=== PATIENT | female | born 2000 | race Caucasian/White ===

== ENCOUNTER 2024-02-29 09:42 | Outpatient (CLI) | payer OTHER, SELFPAY ==
[2024-02-29 12:04] LABS: Chlamydia DNA Amplified* NOT DETECTED (No Detected); GC DNA Amplified* NOT DETECTED (No Detected)
== END 2024-02-29 09:43 | disposition home or self-care (01) ==
LOC: NFLDREF 09:42
PROVIDERS: PCP Advanced Practice Midwife; Visit Provider Advanced Practice Midwife
DX: Z11.3 Encounter for screening for infections with a predominantly sexual mode of transmission (principal)
CPT/HCPCS: 87491; 87591